=== PATIENT | male | born 1940 | race Caucasian/White ===

== ENCOUNTER → 2017-12-11 | Outpatient (CLI) | payer MEDICARE ==
[~2017-12-11] MED LIST: ANTACID EXTRA1 EACH PO; ASPI81CH PO; Antacid500 MG PO; Antihistamine25 MG PO; BAYER BACK & B1 EACH; BAYER BACK & B1 EACH PO; CHOL10002 PO; DIPH50 PO; FISH1000; Flonase 0.05% N16 GM; Fluocinolone Ac15 G1 TP; MIGRAINE RELIE1 EACH PO; MULVIT PO; Melatonin5 M1 PO; Naprosyn500 MG PO; Norco 10-325 T1 EACH PO; Norco 5-325 Ta1 EACH PO; OMEP20ER PO; RANI150; ROSU5 PO; Roxicodone5 MG PO; Viagra100 MG PO; ZESTORETIC 20-121 EA PO
== END ==
LOC: LAB SHORT 17:17 → LAB 17:17
DX: Z48.817 Encounter for surgical aftercare following surgery on the skin and subcutaneous tissue (principal)
CPT/HCPCS: 87070; 87077; 87147; 87186; 87205

== ENCOUNTER 2017-12-12 17:04 | Emergency (ER) | payer MEDICARE ==
[~2017-12-12] VITALS: Ht 167.6 cm; Wt 77.1 kg
[~2017-12-12 17:04] MED LIST changes: -Roxicodone5 MG PO
[2017-12-12] MEDS ORDERED: Roxicodone5 MG PO (18:28)
== END 2017-12-12 18:33 | disposition home or self-care (01) ==
LOC: ER 17:04
DX: L03.114 Cellulitis of left upper limb (principal); Z79.899 Other long term (current) drug therapy; Z79.82 Long term (current) use of aspirin; Z87.442 Personal history of urinary calculi
CPT/HCPCS: 29125; 99282

== ENCOUNTER 2018-07-17 06:29 | Day surgery (SDC) | payer MEDICARE ==
[~2018-07-17] VITALS: Ht 167.6 cm; Wt 81.5 kg
[~2018-07-17 06:29] MED LIST changes: +ALKA-SELTZER H1 EAC1 PO; +Crestor5 MG PO; +FINA5 PO; +FLUO.01TC TOP; +LO-DOSE ASPIRIN81 MG PO; +NAPR220 PO; +ONE DAILY COMP1 EACH PO; +Omeprazole20 M1 PO; +PROM25 PO; +Roxicodone5 MG PO; +TRAZ50 PO; +Zantac150 MG PO
[2018-07-17] MEDS ORDERED: Benadryl25 MG PO (07:09)
[2018-07-17] MEDS ORDERED: ACET500 PO (07:10)
[2018-07-17] MEDS ORDERED: ANTACID-ANTIGA1 EACH PO (07:10)
--- NOTE | 2018-07-17 07:13 | NUR ---
07/17/18 0713 Fabby Messina V PT RESTING IN BED, SIDE RAILS IN PLACE,C ALL LIGHT WITHIN REACH, VSS. PT TEACHING COMPLETED. PT DENIES PAIN, DISCOMFORT, AND QUESTIONS AT THIS TIME.
== END 2018-07-17 08:40 | disposition home or self-care (01) ==
LOC: ORSCSDS 06:29
PROVIDERS: Ophthalmology
PROC: 08RJ3JZ Replacement of Right Lens with Synthetic Substitute, Percutaneous Approach (ICD-10-PCS; principal; 2018-07-17 08:00)
DX: H25.11 Age-related nuclear cataract, right eye (principal); E11.9 Type 2 diabetes mellitus without complications; E78.5 Hyperlipidemia, unspecified; K21.9 Gastro-esophageal reflux disease without esophagitis; I10 Essential (primary) hypertension; Z79.82 Long term (current) use of aspirin; Z79.899 Other long term (current) drug therapy
CPT/HCPCS: J2250; J3010; J3301; V2632

== ENCOUNTER 2018-08-14 06:07 | Day surgery (SDC) | payer MEDICARE ==
[~2018-08-14] VITALS: Ht 167.6 cm; Wt 81.5 kg
[~2018-08-14 06:07] MED LIST changes: +ACET500 PO; +ANTACID-ANTIGA1 EACH PO; +Benadryl25 MG PO
--- NOTE | 2018-08-14 06:48 | NUR ---
08/14/18 0648 Fabby Messina V PT RESTING IN BED, SIDE RAILS IN PLACE, CALL LIGHT WITHIN REACH, VSS. PT DENIES PAIN, DISCOMFORT, AND QUESTIONS AT THIS TIME. PT TEACHING COMPLETED.
== END 2018-08-14 08:05 | disposition home or self-care (01) ==
LOC: ORSCSDS 06:07
PROVIDERS: Ophthalmology
PROC: 08RK3JZ Replacement of Left Lens with Synthetic Substitute, Percutaneous Approach (ICD-10-PCS; principal; 2018-08-14 07:30)
DX: H25.12 Age-related nuclear cataract, left eye (principal); I10 Essential (primary) hypertension; J45.909 Unspecified asthma, uncomplicated; K21.9 Gastro-esophageal reflux disease without esophagitis; Z79.899 Other long term (current) drug therapy
CPT/HCPCS: J2001; J2250; J3010; J3301; V2632

== ENCOUNTER 2021-01-29 19:17 | Emergency (ER) | payer MEDICARE ==
[~2021-01-29] VITALS: Ht 167.6 cm; Wt 84.8 kg
[~2021-01-29 19:17] MED LIST changes: +ROSU5
[2021-01-29 19:46] LABS: BASOPHILS ABSOLUTE AUTO 0.06 K/mm3 (0.00-0.23); BASOPHILS PERCENT AUTO 0 % (0-2); EOSINOPHILS ABSOLUTE AUTO 0.02 K/mm3 (0.00-0.68); EOSINOPHILS PERCENT AUTO 0 % (0-6); Hematocrit 44.1 % (37.0-53.0); Hemoglobin 14.3 g/dL (13.5-17.5); IMMATURE GRAN ABSOLUTE AUTO 0.15 K/mm3 (0.00-0.10); IMMATURE GRAN PERCENT AUTO 1 % (0-1); LYMPHOCYTES ABSOLUTE AUTO 1.45 K/mm3 (0.84-5.20); LYMPHOCYTES PERCENT AUTO 6 % (21-46); MONOCYTES ABSOLUTE AUTO 1.16 K/mm3 (0.16-1.47); MONOCYTES PERCENT AUTO 5 % (4-13); Mean Corpuscular HGB 29.2 pg (26.0-34.0); Mean Corpuscular HGB Conc 32.4 g/dL (31.5-36.5); Mean Corpuscular Volume 90 fL (80-100); Mean Platelet Volume 9.5 fL (9.1-12.4); NEUTROPHILS ABSOLUTE AUTO 22.46 K/mm3 (1.96-9.15); NEUTROPHILS PERCENT AUTO 89 % (41-73); Platelet Count 311 K/mm3 (150-400); RDW Coefficient Variation 13.1 % (11.7-14.2); RDW Standard Deviation 43.4 fL (35.1-46.3)
[2021-01-29] MEDS ORDERED: AMOCLA875 PO (19:59)
[2021-01-29] MEDS ORDERED: MOTION RELIEF25 MG PO (19:59)
[2021-01-29 20:08] LABS: Troponin I <0.015 ng/mL (0.000-0.040)
[2021-01-29 20:09] LABS: Alanine Aminotransfer (ALT/SGP 41 U/L (12-78); Albumin, Blood 3.4 g/dL (3.4-5.0); Albumin/Globulin Ratio 0.8 (0.8-1.8); Alk Phos 106 U/L (50-136); Anion Gap 9 mmol/L (6-16); Aspartate Aminotrans (AST/SGOT 24 U/L (12-37); Bilirubin, Total 0.5 mg/dL (0.1-1.0); Blood Urea Nitrogen 21 mg/dL (8-24); Bun/Creatinine Ratio 18.9 (12.0-20.0); CO2, Blood 20 mmol/L (21-32); Calcium, Blood 9.3 mg/dL (8.5-10.1); Chloride, Blood 105 mmol/L (98-108); Creatinine, Blood 1.11 mg/dL (0.60-1.20); Globulin, Blood 4.1 g/dL (2.2-4.0); Glomerular Filtration Rate >60 (60-); Glucose, Blood 113 mg/dL (70-99); Potassium, Blood 4.2 mmol/L (3.5-5.5); Sodium, Blood 134 mmol/L (136-145); Total Protein, Blood 7.5 g/dL (6.4-8.2)
== END 2021-01-29 21:15 | disposition home or self-care (01) ==
LOC: ER 19:17
PROVIDERS: Physician Assistant
DX: K21.9 Gastro-esophageal reflux disease without esophagitis (principal); D72.829 Elevated white blood cell count, unspecified; E11.9 Type 2 diabetes mellitus without complications; I10 Essential (primary) hypertension; Z88.8 Allergy status to other drugs, medicaments and biological substances; Z79.899 Other long term (current) drug therapy; Z79.82 Long term (current) use of aspirin
CPT/HCPCS: 36415; 71046; 80053; 83690; 84484; 85025; 93005; 93010; 99285-25

== ENCOUNTER 2021-12-09 04:02 | Observation (INO) | payer MEDICARE ==
[~2021-12-09] VITALS: Ht 167.6 cm; Wt 84.5 kg
[~2021-12-09 04:02] MED LIST changes: +AMOCLA875 PO; +MOTION RELIEF25 MG PO; -Omeprazole20 M1 PO
[2021-12-09 04:35] LABS: BASOPHILS ABSOLUTE AUTO 0.04 K/mm3 (0.00-0.23); BASOPHILS PERCENT AUTO 0 % (0-2); EOSINOPHILS ABSOLUTE AUTO 0.04 K/mm3 (0.00-0.68); EOSINOPHILS PERCENT AUTO 0 % (0-6); Hematocrit 40.1 % (37.0-53.0); Hemoglobin 13.3 g/dL (13.5-17.5); IMMATURE GRAN ABSOLUTE AUTO 0.03 K/mm3 (0.00-0.10); IMMATURE GRAN PERCENT AUTO 0 % (0-1); LYMPHOCYTES ABSOLUTE AUTO 1.71 K/mm3 (0.84-5.20); LYMPHOCYTES PERCENT AUTO 17 % (21-46); MONOCYTES PERCENT AUTO 4 % (4-13); Mean Corpuscular HGB 28.8 pg (26.0-34.0); Mean Corpuscular HGB Conc 33.2 g/dL (31.5-36.5); Mean Corpuscular Volume 87 fL (80-100); Mean Platelet Volume 9.6 fL (9.1-12.4); NEUTROPHILS ABSOLUTE AUTO 7.85 K/mm3 (1.96-9.15); NEUTROPHILS PERCENT AUTO 78 % (41-73); Platelet Count 346 K/mm3 (150-400); RDW Standard Deviation 41.5 fL (35.1-46.3); Red Blood Cell Count 4.62 M/mm3 (4.30-5.90); White Blood Cell Count 10.07 K/mm3 (4.00-11.30)
[2021-12-09 04:56] LABS: Albumin/Globulin Ratio 1.2 (0.8-1.8); Bilirubin, Total 0.4 mg/dL (0.1-1.0); Bun/Creatinine Ratio 10.1 (12.0-20.0); Calcium, Blood 9.1 mg/dL (8.5-10.1); Creatinine, Blood 1.19 mg/dL (0.60-1.20); Globulin, Blood 3.4 g/dL (2.2-4.0); Potassium, Blood 3.9 mmol/L (3.5-5.5); Total Protein, Blood 7.4 g/dL (6.4-8.2)
[2021-12-09 09:27] LABS: Source, Urine Clean Catch
[2021-12-09 09:48] LABS: Appearance, Urine Clear (Clear); Bilirubin, Urine Neg (Neg); Blood, Urine Neg (Neg); Color, Urine Yellow (P-Yellow); Glucose Qualitative, Urine Neg (Neg); Ketones, Urine Neg (Neg); Leukocyte Esterase, Urine Neg (Neg); Nitrite, Urine Neg (Neg); Protein, Urine Neg (Neg); Urobilinogen, Urine NORM (Normal)
[2021-12-09 12:17] LABS: Albumin, Blood 3.5 g/dL (3.4-5.0); Albumin/Globulin Ratio 1.1 (0.8-1.8); Bilirubin, Total 0.3 mg/dL (0.1-1.0); Bun/Creatinine Ratio 11.1 (12.0-20.0); Calcium, Blood 8.5 mg/dL (8.5-10.1); Creatinine, Blood 0.99 mg/dL (0.60-1.20); Globulin, Blood 3.2 g/dL (2.2-4.0); Potassium, Blood 4.1 mmol/L (3.5-5.5); Total Protein, Blood 6.7 g/dL (6.4-8.2)
[2021-12-10 05:42] LABS: Hematocrit 39.3 % (37.0-53.0); Hemoglobin 12.6 g/dL (13.5-17.5); Mean Corpuscular HGB 28.7 pg (26.0-34.0); Mean Corpuscular HGB Conc 32.1 g/dL (31.5-36.5); Mean Corpuscular Volume 90 fL (80-100); Mean Platelet Volume 9.9 fL (9.1-12.4); Platelet Count 320 K/mm3 (150-400); RDW Standard Deviation 43.1 fL (35.1-46.3); Red Blood Cell Count 4.39 M/mm3 (4.30-5.90); White Blood Cell Count 13.57 K/mm3 (4.00-11.30)
[2021-12-10 06:12] LABS: Albumin, Blood 3.5 g/dL (3.4-5.0); Albumin/Globulin Ratio 1.2 (0.8-1.8); Bilirubin, Total 0.3 mg/dL (0.1-1.0); Bun/Creatinine Ratio 11.6 (12.0-20.0); Calcium, Blood 8.6 mg/dL (8.5-10.1); Creatinine, Blood 0.95 mg/dL (0.60-1.20); Globulin, Blood 2.9 g/dL (2.2-4.0); Potassium, Blood 4.4 mmol/L (3.5-5.5); Total Protein, Blood 6.4 g/dL (6.4-8.2)
[2021-12-10 06:53] LABS: BAND PERCENT MAN 1 % (0-8); BASOPHILS PERCENT MAN 0 % (0-2); EOSINOPHILS PERCENT MAN 0 % (0-6); LYMPHOCYTES ABSOLUTE MAN 1.89 K/mm3 (0.84-5.20); LYMPHOCYTES PERCENT MAN 14 % (21-46); MONOCYTES ABSOLUTE MAN 0.54 K/mm3 (0.16-1.47); MONOCYTES PERCENT MAN 4 % (4-13); NEUTROPHILS ABSOLUTE MAN 11.12 K/mm3 (1.96-9.15); SEG NEUTROPHILS PERCENT MAN 81 % (41-73); TOTAL CELLS COUNTED 100
== END 2021-12-10 19:20 | disposition home or self-care (01) ==
LOC: ER 04:02 → MEDS 08:27
PROVIDERS: Emergency Medicine; ADMIT Internal Medicine Endocrinology, Diabetes & Metabolism
DX: R10.84 Generalized abdominal pain (principal); C85.93 Non-Hodgkin lymphoma, unspecified, intra-abdominal lymph nodes; R11.10 Vomiting, unspecified; K21.9 Gastro-esophageal reflux disease without esophagitis; R74.02 Elevation of levels of lactic acid dehydrogenase [LDH]; E11.9 Type 2 diabetes mellitus without complications; I10 Essential (primary) hypertension; R11.2 Nausea with vomiting, unspecified; Z88.8 Allergy status to other drugs, medicaments and biological substances; Z79.82 Long term (current) use of aspirin; Z79.899 Other long term (current) drug therapy
CPT/HCPCS: 36415; 74177; 80053; 81003; 83605; 83615; 83690; 84484; 84550; 85007; 85025; 85027; 86850; 86900; 86901; 93005; 93010; A9270; J1170; J1650; J2270; J2405; J2550; J2765; J3480; J7030; Q9967

== ENCOUNTER 2022-08-04 16:07 | Emergency (ER) | payer MEDICARE ==
[~2022-08-04] VITALS: Ht 167.6 cm; Wt 81.7 kg
[2022-08-04 17:03] LABS: Hematocrit 36.3 % (37.0-53.0); Hemoglobin 12.1 g/dL (13.5-17.5); Mean Corpuscular HGB 28.7 pg (26.0-34.0); Mean Corpuscular HGB Conc 33.3 g/dL (31.5-36.5); Mean Corpuscular Volume 86 fL (80-100); Mean Platelet Volume 9.7 fL (9.1-12.4); Platelet Count 261 K/mm3 (150-400); RDW Coefficient Variation 14.1 % (11.7-14.2); RDW Standard Deviation 43.6 fL (35.1-46.3); Red Blood Cell Count 4.22 M/mm3 (4.30-5.90); White Blood Cell Count 19.13 K/mm3 (4.00-11.30)
[2022-08-04 17:23] LABS: Albumin, Blood 3.5 g/dL (3.4-5.0); Albumin/Globulin Ratio 1.1 (0.8-1.8); Bilirubin, Total 0.3 mg/dL (0.1-1.0); Bun/Creatinine Ratio 10.8 (12.0-20.0); Calcium, Blood 8.7 mg/dL (8.5-10.1); Creatinine, Blood 1.11 mg/dL (0.60-1.20); Globulin, Blood 3.3 g/dL (2.2-4.0); Potassium, Blood 2.9 mmol/L (3.5-5.5); Total Protein, Blood 6.8 g/dL (6.4-8.2)
[2022-08-04 17:24] LABS: BAND PERCENT MAN 4 % (0-8); BASOPHILS PERCENT MAN 0 % (0-2); EOSINOPHILS ABSOLUTE MAN 0.38 K/mm3 (0.00-0.68); EOSINOPHILS PERCENT MAN 2 % (0-6); LYMPHOCYTES ABSOLUTE MAN 0.57 K/mm3 (0.84-5.20); LYMPHOCYTES PERCENT MAN 3 % (21-46); METAMYELOCYTE ABSOLUTE MAN 0.19 K/mm3 (0.00-0.00); METAMYELOCYTE PERCENT MAN 1 % (0-0); MONOCYTES ABSOLUTE MAN 1.53 K/mm3 (0.16-1.47); MONOCYTES PERCENT MAN 8 % (4-13); MYELOCYTE ABSOLUTE MAN 0.38 K/mm3 (0.00-0.00); MYELOCYTE PERCENT MAN 2 % (0-0); NEUTROPHILS ABSOLUTE MAN 16.06 K/mm3 (1.96-9.15); SEG NEUTROPHILS PERCENT MAN 80 % (41-73); TOTAL CELLS COUNTED 100
[2022-08-04] MEDS ORDERED: LISI20 PO (21:31)
[2022-08-04 21:40] LABS: Source, Urine Clean Catch
[2022-08-04 21:45] LABS: Appearance, Urine Clear (Clear); Bilirubin, Urine Neg (Neg); Blood, Urine Neg (Neg); Color, Urine Yellow (P-Yellow); Glucose Qualitative, Urine Neg (Neg); Ketones, Urine Neg (Neg); Leukocyte Esterase, Urine Neg (Neg); Nitrite, Urine Neg (Neg); Protein, Urine Neg (Neg); Specific Gravity, Urine 1.005 (1.003-1.022); Urobilinogen, Urine NORM (Normal)
[2022-08-04 23:00] VITALS: BP 148/71
[2022-08-04] MEDS ORDERED: OXAYDO5 M1 PO (23:06)
== END 2022-08-04 23:18 | disposition home or self-care (01) ==
LOC: ER 16:07
PROVIDERS: Physician Assistant; Student in an Organized Health Care Education/Training Program
DX: M51.36 Other intervertebral disc degeneration, lumbar region (principal); Z88.8 Allergy status to other drugs, medicaments and biological substances; Z79.899 Other long term (current) drug therapy; E11.9 Type 2 diabetes mellitus without complications; I10 Essential (primary) hypertension; E78.00 Pure hypercholesterolemia, unspecified; K21.9 Gastro-esophageal reflux disease without esophagitis
CPT/HCPCS: 36415; 72100; 74177; 80053; 81003; 85025; 85651; 86140; 96361; 96374-59; 96375; 99284-25; A9270; J1885; J2270; J7030; Q9967

== ENCOUNTER 2023-03-07 14:29 | Inpatient (IN) | payer MEDICARE ==
[~2023-03-07] VITALS: Ht 167.6 cm; Wt 79.2 kg
[~2023-03-07 14:29] MED LIST changes: +LISI20 PO; +OXAYDO5 M1 PO
[2023-03-07 14:58] LABS: BASOPHILS ABSOLUTE AUTO 0.04 K/mm3 (0.00-0.23); BASOPHILS PERCENT AUTO 0 % (0-2); EOSINOPHILS ABSOLUTE AUTO 0.05 K/mm3 (0.00-0.68); EOSINOPHILS PERCENT AUTO 0 % (0-6); Hematocrit 44.9 % (37.0-53.0); Hemoglobin 14.7 g/dL (13.5-17.5); IMMATURE GRAN ABSOLUTE AUTO 0.13 K/mm3 (0.00-0.10); IMMATURE GRAN PERCENT AUTO 1 % (0-1); LYMPHOCYTES PERCENT AUTO 10 % (21-46); MONOCYTES ABSOLUTE AUTO 0.63 K/mm3 (0.16-1.47); MONOCYTES PERCENT AUTO 5 % (4-13); Mean Corpuscular HGB Conc 32.7 g/dL (31.5-36.5); Mean Corpuscular Volume 89 fL (80-100); Mean Platelet Volume 9.1 fL (9.1-12.4); NEUTROPHILS ABSOLUTE AUTO 10.22 K/mm3 (1.96-9.15); NEUTROPHILS PERCENT AUTO 83 % (41-73); Platelet Count 394 K/mm3 (150-400); RDW Coefficient Variation 13.5 % (11.7-14.2); RDW Standard Deviation 43.9 fL (35.1-46.3); Red Blood Cell Count 5.07 M/mm3 (4.30-5.90); White Blood Cell Count 12.27 K/mm3 (4.00-11.30)
[2023-03-07 15:17] LABS: Albumin, Blood 3.7 g/dL (3.4-5.0); Bilirubin, Total 0.3 mg/dL (0.1-1.0); Bun/Creatinine Ratio 14.5 (12.0-20.0); Calcium, Blood 9.2 mg/dL (8.5-10.1); Creatinine, Blood 1.17 mg/dL (0.60-1.20); Globulin, Blood 3.7 g/dL (2.2-4.0); Potassium, Blood 3.4 mmol/L (3.5-5.5); Total Protein, Blood 7.4 g/dL (6.4-8.2)
--- NOTE | 2023-03-07 18:57 | NUR ---
ARRIVAL NOTE PT ARRIVAL TO UNIT FROM ED. PT HAS CLOTHING ONLY IN HIS POSESSIONS. ALL OTHER ITEMS SENT HOME WITH . AMBULATED INDEPENDENTLY FROM GOURNEY TO BED. A&Ox4, [place]. NPO. NG TUBE IN PLACE, CONNECTED TO INTERMITTENT SUCTION. ORIENTED TO ROOM, PT STATES NO NEEDS AT THIS TIME, CALL LIGHT WITHIN REACH.
[2023-03-07 19:00] VITALS: BP 159/95
[2023-03-08 00:44] VITALS: BP 138/72
--- NOTE | 2023-03-08 04:25 | NUR ---
SHIFT SUMMARY S/P SBO. NO ACUTE CHNAGES OVERNIGHT. A&O x4. NPO. NG TUBE CONNECTED TO INTERMITTERNT SUCTION, BILOUS FLUID. DENIES N/V. PT ON BEDREST, USES URINAL TO VOID. PT REPORTS NO PAIN OVERNIGHT. PT STATES HE FEELS HE IS UNABLE TO SLEEP, HAS SPENT MOST OF THE NIGHT WATCHING TV. CALL LIGHT WITHIN REACH, BED IN LOWEST POSITION, WILL REPORT TO DAY RN.
[2023-03-08 05:33] VITALS: BP 145/72
[2023-03-08 05:40] LABS: Bun/Creatinine Ratio 15.5 (12.0-20.0); Calcium, Blood 8.6 mg/dL (8.5-10.1); Creatinine, Blood 1.03 mg/dL (0.60-1.20); Potassium, Blood 3.5 mmol/L (3.5-5.5)
[2023-03-08 07:13] VITALS: BP 153/81
[2023-03-08] MEDS ORDERED: BENADRYL25 MG PO (07:53)
[2023-03-08] MEDS ORDERED: Aspir 8181 MG PO (07:54)
[2023-03-08] MEDS ORDERED: CENTRUM SILVER1 EAC2 PO (07:57)
[2023-03-08] MEDS ORDERED: ZANTAC PO (07:57)
[2023-03-08] MEDS ORDERED: VITAMIN D31000 UNI1 PO (07:59)
[2023-03-08] MEDS ORDERED: NAPR220 PO (08:00)
[2023-03-08 14:31] VITALS: BP 149/79
--- NOTE | 2023-03-08 14:31 | NUR ---
PASSED FLATUS AND LATER HAD SMALL-MEDIUM BM.
--- NOTE | 2023-03-08 15:32 | NUR ---
Pt. is awake in bed and welcomes my visit. Pt. is unsettled by the wait for his diagnosis and treatment plan. Listen with empathy and a calming presence while I seek to normalize the Pt. experience. Pt. displayed evidence of awareness and engagement. Prayed with Pt. Pt. verbalized gratitude for the spiritual care visit.
--- NOTE | 2023-03-08 15:55 | NUR ---
SUMMARY PT WAITING TO SEE SURGEON. NG HAS HAD SMALL AMOUNT OF OUTPUT FROM LIS. DENIES PAIN OR N/V. PASSED FLATUS AND HAD SM-MED BM AT MIDDAY. CALL LIGHT IN REACH.
--- NOTE | 2023-03-08 16:19 | NUR ---
report given and care turned over to argelia taveras rn
[2023-03-08 23:52] VITALS: BP 149/67
[2023-03-09 04:52] VITALS: BP 138/75
--- NOTE | 2023-03-09 07:17 | NUR ---
SUMMARY PT SLEEPING SINCE OBTAINING POWER GLIDE.NG OUT AT BEGINNING OF SHIFT. NO NAUSEA, NO C/O PAIN.
[2023-03-09 08:33] VITALS: BP 143/80
[2023-03-09 15:33] VITALS: BP 143/64
--- NOTE | 2023-03-09 16:04 | NUR ---
SUMMARY: NO CHANGE THIS SHIFT. PT A/O, VSS. TOOK SEVERAL WALKS IN THE HALLS TODAY. PT DENIES PAIN, N/V. REPORTS PASSING FLATUS, DIET ADVANCED TO CLEAR LIQ AND PT IS TOLERATING. IV ANTIBIOTICS INFUSED AND IV STEROIDS GIVEN. PLAN IS FOR REPEAT CT ON SUNDAY.
[2023-03-09 19:30] VITALS: BP 135/67
[2023-03-10 03:30] VITALS: BP 118/61
--- NOTE | 2023-03-10 06:45 | NUR ---
SHIFT SUMMARY NO ACUTE CHANGES NOTED, VSS, SLIGHT NAUSEA THIS AM, ON ROOM AIR, VOIDING WNL, BM REPORTED THIS AM, PAIN WNL, REPORT GIVEN TO SELENE ALANIS, CALL LIGHT IN REACH
[2023-03-10 07:21] LABS: Hematocrit 32.8 % (37.0-53.0); Hemoglobin 10.8 g/dL (13.5-17.5); Mean Corpuscular HGB 28.9 pg (26.0-34.0); Mean Corpuscular HGB Conc 32.9 g/dL (31.5-36.5); Mean Corpuscular Volume 88 fL (80-100); Mean Platelet Volume 9.5 fL (9.1-12.4); Platelet Count 367 K/mm3 (150-400); RDW Coefficient Variation 13.6 % (11.7-14.2); RDW Standard Deviation 43.7 fL (35.1-46.3); Red Blood Cell Count 3.74 M/mm3 (4.30-5.90); White Blood Cell Count 17.19 K/mm3 (4.00-11.30)
[2023-03-10 07:31] LABS: Albumin, Blood 3.1 g/dL (3.4-5.0); Albumin/Globulin Ratio 1.1 (0.8-1.8); Bilirubin, Total 0.2 mg/dL (0.1-1.0); Bun/Creatinine Ratio 23.1 (12.0-20.0); Calcium, Blood 8.4 mg/dL (8.5-10.1); Creatinine, Blood 1.04 mg/dL (0.60-1.20); Globulin, Blood 2.7 g/dL (2.2-4.0); Total Protein, Blood 5.8 g/dL (6.4-8.2)
[2023-03-10 07:33] VITALS: BP 124/65
[2023-03-10 08:24] LABS: BAND PERCENT MAN 19 % (0-8); BASOPHILS PERCENT MAN 0 % (0-2); EOSINOPHILS PERCENT MAN 0 % (0-6); LYMPHOCYTES % ATYPICAL MANUAL 1 % (0-0); LYMPHOCYTES ABSOLUTE MAN 0.51 K/mm3 (0.84-5.20); LYMPHOCYTES PERCENT MAN 2 % (21-46); METAMYELOCYTE ABSOLUTE MAN 0.17 K/mm3 (0.00-0.00); METAMYELOCYTE PERCENT MAN 1 % (0-0); MONOCYTES ABSOLUTE MAN 0.17 K/mm3 (0.16-1.47); MONOCYTES PERCENT MAN 1 % (4-13); NEUTROPHILS ABSOLUTE MAN 16.33 K/mm3 (1.96-9.15); SEG NEUTROPHILS PERCENT MAN 76 % (41-73); TOTAL CELLS COUNTED 100
[2023-03-10 14:35] VITALS: BP 125/72
--- NOTE | 2023-03-10 18:37 | NUR ---
SHIFT SUMMARY PT HAVING MULTIPLE BM THIS SHIFT, NAUSEA RESOLVED. TOLERATING FULL LIQUID DIET. PT CONTINUING IV ABX AT THIS TIME. PLAN FOR REPEAT CT SCAN SUNDAY.
[2023-03-10 21:19] VITALS: BP 136/70
[2023-03-11 04:54] VITALS: BP 142/73
[2023-03-11 05:20] LABS: Hematocrit 31.3 % (37.0-53.0); Hemoglobin 10.3 g/dL (13.5-17.5); Mean Corpuscular HGB 29.1 pg (26.0-34.0); Mean Corpuscular HGB Conc 32.9 g/dL (31.5-36.5); Mean Corpuscular Volume 88 fL (80-100); Mean Platelet Volume 9.5 fL (9.1-12.4); Platelet Count 314 K/mm3 (150-400); RDW Coefficient Variation 13.9 % (11.7-14.2); RDW Standard Deviation 44.8 fL (35.1-46.3); Red Blood Cell Count 3.54 M/mm3 (4.30-5.90); White Blood Cell Count 15.26 K/mm3 (4.00-11.30)
[2023-03-11 05:54] LABS: Albumin, Blood 2.9 g/dL (3.4-5.0); Albumin/Globulin Ratio 1.2 (0.8-1.8); BAND PERCENT MAN 10 % (0-8); BASOPHILS PERCENT MAN 0 % (0-2); Bilirubin, Total 0.2 mg/dL (0.1-1.0); Bun/Creatinine Ratio 21.8 (12.0-20.0); Calcium, Blood 8.5 mg/dL (8.5-10.1); Creatinine, Blood 1.01 mg/dL (0.60-1.20); EOSINOPHILS PERCENT MAN 0 % (0-6); Globulin, Blood 2.4 g/dL (2.2-4.0); LYMPHOCYTES ABSOLUTE MAN 0.15 K/mm3 (0.84-5.20); LYMPHOCYTES PERCENT MAN 1 % (21-46); METAMYELOCYTE ABSOLUTE MAN 0.61 K/mm3 (0.00-0.00); METAMYELOCYTE PERCENT MAN 4 % (0-0); MONOCYTES PERCENT MAN 2 % (4-13); MYELOCYTE PERCENT MAN 2 % (0-0); NEUTROPHILS ABSOLUTE MAN 13.88 K/mm3 (1.96-9.15); Potassium, Blood 3.7 mmol/L (3.5-5.5); SEG NEUTROPHILS PERCENT MAN 81 % (41-73); TOTAL CELLS COUNTED 100; Total Protein, Blood 5.3 g/dL (6.4-8.2)
--- NOTE | 2023-03-11 07:31 | NUR ---
SHIFT SUMMARY NO ACUTE CHANGES NOTED THROUGH THE NIGHT, PT IS A&O X4, ON RA, VSS, INDEPENDEDNT IN ROOM, VOIDING WNL, LIQUID GREEN STOOL REPORTED BY PT, PT DENIES PAIN, OCCASIONAL NAUSEA, CLEAR LIQUID DIET, REPORT GIVEN TO YASMENE ALANIS, PT RESTING IN BED, RESP UNLABORED, CALL LIGHT IN REACH
[2023-03-11 07:34] VITALS: BP 140/67
[2023-03-11 14:40] VITALS: BP 134/70
--- NOTE | 2023-03-11 17:29 | NUR ---
shift summary pt continues to have loose stools but reports improvement as the day progressed. reports slight nausea in the morning but denies otherwise. no pain during shift, ambulating in room well. plan is for repeat ct in the morning.
[2023-03-11 20:30] VITALS: BP 147/78
[2023-03-12 05:37] VITALS: BP 165/79
--- NOTE | 2023-03-12 06:49 | NUR ---
SHIFT SUMMARY PT IS HERE FOR AN SBO WHICH APPEARS TO BE RESOLVING. CT PERFORMED THIS AM TO SEE IF PT IS CLEARED TO GO HOME. PT'S VITAL SIGNS HAVE BEEN STABLE, THOUGH HIS SYSTOLIC BP WAS ELEVATED AT AM VS. PT HAS RESTED COMFORTABLY THROUGHOUT THE SHIFT W/NO ACUTE EVENTS OCCURRING. BED IS IN LOWEST POSITION, CALL LIGHT IS WITHIN REACH.
[2023-03-12 07:08] VITALS: BP 152/89
--- NOTE | 2023-03-12 13:13 | NUR ---
DR ELDRIDGE SIGNED OFF YESTERDAY, DR TAPIA PLACED ORDERS TO DC PATIENT. LABS DRAWN PER ORDERS PRIOR TO DC.
[2023-03-12 13:33] VITALS: BP 173/82
--- NOTE | 2023-03-12 13:34 | NUR ---
DISCHARGE DC'D IV, CATHETER INTACT. REVIEWED DC INSTRUCTIONS WITH PT. PT ANXIOUS TO BE DISCHARGED. VERBALIZED UNDERSTANDING OF DC INSTRUCTIONS. PT LEAVING UNIT IN WC, ACCMPANIED BY SPOUSE TO RIDE OUTSIDE.
[2023-03-12 13:52] LABS: Hematocrit 35.6 % (37.0-53.0); Hemoglobin 11.4 g/dL (13.5-17.5); Mean Corpuscular HGB 28.6 pg (26.0-34.0); Mean Corpuscular Volume 89 fL (80-100); Platelet Count 354 K/mm3 (150-400); RDW Standard Deviation 45.6 fL (35.1-46.3); Red Blood Cell Count 3.98 M/mm3 (4.30-5.90); White Blood Cell Count 14.49 K/mm3 (4.00-11.30)
[2023-03-12 14:05] LABS: Albumin, Blood 3.1 g/dL (3.4-5.0); Albumin/Globulin Ratio 1.1 (0.8-1.8); Bilirubin, Total 0.2 mg/dL (0.1-1.0); Bun/Creatinine Ratio 17.2 (12.0-20.0); Calcium, Blood 8.8 mg/dL (8.5-10.1); Creatinine, Blood 0.99 mg/dL (0.60-1.20); Globulin, Blood 2.7 g/dL (2.2-4.0); Potassium, Blood 3.5 mmol/L (3.5-5.5); Total Protein, Blood 5.8 g/dL (6.4-8.2); Uric Acid, Blood 5.4 mg/dL (3.5-7.2)
[2023-03-12 15:27] LABS: BAND PERCENT MAN 11 % (0-8); BASOPHILS PERCENT MAN 0 % (0-2); EOSINOPHILS PERCENT MAN 0 % (0-6); LYMPHOCYTES ABSOLUTE MAN 0.43 K/mm3 (0.84-5.20); LYMPHOCYTES PERCENT MAN 3 % (21-46); METAMYELOCYTE ABSOLUTE MAN 0.28 K/mm3 (0.00-0.00); METAMYELOCYTE PERCENT MAN 2 % (0-0); MONOCYTES ABSOLUTE MAN 0.72 K/mm3 (0.16-1.47); MONOCYTES PERCENT MAN 5 % (4-13); MYELOCYTE ABSOLUTE MAN 0.14 K/mm3 (0.00-0.00); MYELOCYTE PERCENT MAN 1 % (0-0); NEUTROPHILS ABSOLUTE MAN 12.89 K/mm3 (1.96-9.15); SEG NEUTROPHILS PERCENT MAN 78 % (41-73); TOTAL CELLS COUNTED 100
== END 2023-03-12 13:40 | disposition home or self-care (01) | DRG 389 ==
LOC: ER 14:29 → SURS 17:22
PROVIDERS: Internal Medicine; Physician Assistant; Surgery; ADMIT Internal Medicine
DX: K56.609 Unspecified intestinal obstruction, unspecified as to partial versus complete obstruction (principal); C85.93 Non-Hodgkin lymphoma, unspecified, intra-abdominal lymph nodes; E11.9 Type 2 diabetes mellitus without complications; I10 Essential (primary) hypertension; E78.00 Pure hypercholesterolemia, unspecified; K21.9 Gastro-esophageal reflux disease without esophagitis; H54.7 Unspecified visual loss; H91.90 Unspecified hearing loss, unspecified ear; E87.6 Hypokalemia; K57.30 Diverticulosis of large intestine without perforation or abscess without bleeding; D72.829 Elevated white blood cell count, unspecified; Z88.8 Allergy status to other drugs, medicaments and biological substances; Z79.51 Long term (current) use of inhaled steroids; Z86.010 Personal history of colon polyps; Z90.49 Acquired absence of other specified parts of digestive tract; Z79.82 Long term (current) use of aspirin
CPT/HCPCS: 36415; 43761; 71045; 74019; 74177; 80048; 80053; 83615; 83690; 83735; 84550; 85025; 99285-25; A9270; C1751; C9113; J0696; J1100; J1644; J2405; J3480; J7050; J7120; Q9967

== ENCOUNTER 2023-03-23 09:00 | Day surgery (SDC) | payer MEDICARE ==
[~2023-03-23] VITALS: Ht 167.6 cm; Wt 77.9 kg
[2023-03-23] VITALS (8 sets, daily range): BP systolic 112–178; BP diastolic 70–77
[~2023-03-23 09:00] MED LIST changes: +Aspir 8181 MG PO; +BENADRYL25 MG PO; +CENTRUM SILVER1 EAC2 PO; +VITAMIN D31000 UNI1 PO; +ZANTAC PO
[2023-03-23] MEDS ORDERED: PRED5 PO (09:16)
--- NOTE | 2023-03-23 10:13 | NUR ---
PRE-OP NOTE PT A&OX4, BREATHING RA, NO COMPLAINTS. Ambulatory in Day Surgery Patient confirms NPO status and agrees with scheduled surgery. Pre-Op teaching done. Pt verbalizes understanding. Patient States Post-Procedure ride home has been arranged.
--- NOTE | 2023-03-23 11:30 | NUR ---
PT AMBULATED TO RESTROOM TO VOID. TOLERATED APPLE JUICE, DENIES NEED FOR PAIN MEDICATION RIGHT NOW, READY FOR DC HOME.
--- NOTE | 2023-03-23 11:32 | NUR ---
Discharge instructions reviewed with patient. Patient verbalizes understanding. Copy given to patient to take home. ICE PACK GIVEN TO PT.
--- NOTE | 2023-03-26 08:56 | NUR ---
03/26/23 0856 Sandy Vega VERIFICATIONS: EDIT CHART.
== END 2023-03-23 11:41 | disposition home or self-care (01) ==
LOC: ORSCMMR 09:00 → ORD 10:30 → ORSCMMR 10:30
PROVIDERS: Surgery
PROC: 0JH63WZ Insertion of Totally Implantable Vascular Access Device into Chest Subcutaneous Tissue and Fascia, Percutaneous Approach (ICD-10-PCS; principal; 2023-03-23 10:00)
PROC: B543ZZA Ultrasonography of Right Jugular Veins, Guidance (ICD-10-PCS; principal; 2023-03-23 10:00)
PROC: 05HM33Z Insertion of Infusion Device into Right Internal Jugular Vein, Percutaneous Approach (ICD-10-PCS; principal; 2023-03-23 10:00)
DX: C82.00 Follicular lymphoma grade I, unspecified site (principal); I10 Essential (primary) hypertension; K21.9 Gastro-esophageal reflux disease without esophagitis; E11.9 Type 2 diabetes mellitus without complications; E78.00 Pure hypercholesterolemia, unspecified; E78.5 Hyperlipidemia, unspecified; Z79.899 Other long term (current) drug therapy; Z79.82 Long term (current) use of aspirin
CPT/HCPCS: 77001; 82947; 93005; 93010; C1788; J0690; J1642; J2250; J2704; J3010; J7120

== ENCOUNTER 2023-03-27 03:13 | Emergency (ER) | payer MEDICARE ==
[~2023-03-27] VITALS: Ht 167.6 cm; Wt 77.1 kg
[~2023-03-27 03:13] MED LIST changes: +PRED5 PO
[2023-03-27 03:53] LABS: RDW Coefficient Variation 14.3 % (11.7-14.2)
[2023-03-27] MEDS ORDERED: [UNRECOGNIZED DRUG - OTHER] (03:54)
[2023-03-27] MEDS ORDERED: HYDROCODONE-AC1 EA19 (03:54)
[2023-03-27] MEDS ORDERED: PRED20 (03:55)
[2023-03-27 04:02] LABS: Hematocrit 39.9 % (37.0-53.0); Hemoglobin 13.1 g/dL (13.5-17.5); Mean Corpuscular HGB 28.7 pg (26.0-34.0); Mean Corpuscular HGB Conc 32.8 g/dL (31.5-36.5); Mean Corpuscular Volume 87 fL (80-100); RDW Standard Deviation 45.7 fL (35.1-46.3); Red Blood Cell Count 4.57 M/mm3 (4.30-5.90); White Blood Cell Count 1.52 K/mm3 (4.00-11.30)
[2023-03-27 04:04] LABS: Mean Platelet Volume 10.4 fL (9.1-12.4)
[2023-03-27 04:13] LABS: BAND PERCENT MAN 2 % (0-8); BASOPHILS PERCENT MAN 0 % (0-2); EOSINOPHILS ABSOLUTE MAN 0.09 K/mm3 (0.00-0.68); EOSINOPHILS PERCENT MAN 6 % (0-6); LYMPHOCYTES % ATYPICAL MANUAL 4 % (0-0); LYMPHOCYTES ABSOLUTE MAN 0.79 K/mm3 (0.84-5.20); LYMPHOCYTES PERCENT MAN 48 % (21-46); MONOCYTES ABSOLUTE MAN 0.42 K/mm3 (0.16-1.47); MONOCYTES PERCENT MAN 28 % (4-13); NEUTROPHILS ABSOLUTE MAN 0.21 K/mm3 (1.96-9.15); SEG NEUTROPHILS PERCENT MAN 12 % (41-73); TOTAL CELLS COUNTED 50
[2023-03-27 04:19] LABS: Albumin, Blood 3.6 g/dL (3.4-5.0); Albumin/Globulin Ratio 1.1 (0.8-1.8); Bilirubin, Total 0.4 mg/dL (0.1-1.0); Bun/Creatinine Ratio 13.4 (12.0-20.0); Creatinine, Blood 1.12 mg/dL (0.60-1.20); Globulin, Blood 3.2 g/dL (2.2-4.0); Potassium, Blood 4.3 mmol/L (3.5-5.5); Total Protein, Blood 6.8 g/dL (6.4-8.2)
[2023-03-27 04:23] LABS: Platelet Count 140 K/mm3 (150-400)
[2023-03-27 05:33] LABS: Source, Urine Clean Catch
[2023-03-27 05:47] LABS: Bilirubin, Urine Neg (Neg); Blood, Urine 3+ (Neg); Glucose Qualitative, Urine Neg (Neg); Ketones, Urine Neg (Neg); Leukocyte Esterase, Urine Neg (Neg); Nitrite, Urine Neg (Neg); Protein, Urine Neg (Neg); Urobilinogen, Urine NORM (Normal)
[2023-03-27 06:03] LABS: Appearance, Urine Clear (Clear); Bacteria Not Seen /hpf; Color, Urine Yellow (P-Yellow); Squamous Epithelial Cells Rare /hpf (Few); White Blood Cells, Urine Not Seen /hpf (0-5)
[2023-03-27] MEDS ORDERED: LIDO700A20 TOP (06:16)
[2023-03-27] MEDS ORDERED: Ibuprofen600 MG PO (06:16)
[2023-03-27 07:35] VITALS: BP 125/63
== END 2023-03-27 08:11 | disposition home or self-care (01) ==
LOC: ER 03:13
PROVIDERS: Emergency Medicine
DX: S39.012A Strain of muscle, fascia and tendon of lower back, initial encounter (principal); G89.29 Other chronic pain; I10 Essential (primary) hypertension; E11.9 Type 2 diabetes mellitus without complications; E78.00 Pure hypercholesterolemia, unspecified; Z88.8 Allergy status to other drugs, medicaments and biological substances; Z79.51 Long term (current) use of inhaled steroids; Z79.82 Long term (current) use of aspirin; Z79.899 Other long term (current) drug therapy; X58.XXXA Exposure to other specified factors, initial encounter
CPT/HCPCS: 51798; 74177; 80053; 81001; 85025; 96361; 96374; 99284-25; J1885; J7030; Q9967

== ENCOUNTER → 2023-08-04 | Outpatient (CLI) | payer MEDICARE ==
[~2023-08-04] MED LIST changes: +DOCU100 PO; +HYDROCODONE-AC1 EA19 PO; +Ibuprofen600 MG PO; +K-Dur20 MEQ PO; +LIDO700A20 TOP; +OXYC5 PO; +Ondansetron Odt8 MG MM; +PRED20
[2023-08-04 11:36] LABS: Hematocrit 29.7 % (37.0-53.0); Hemoglobin 9.4 g/dL (13.5-17.5); Mean Corpuscular HGB Conc 31.6 g/dL (31.5-36.5); Mean Corpuscular Volume 82 fL (80-100); Mean Platelet Volume 10.1 fL (9.1-12.4); Platelet Count 365 K/mm3 (150-400); RDW Coefficient Variation 16.8 % (11.7-14.2); RDW Standard Deviation 49.7 fL (35.1-46.3); Red Blood Cell Count 3.62 M/mm3 (4.30-5.90)
[2023-08-04 11:42] LABS: Albumin, Blood 2.9 g/dL (3.4-5.0); Albumin/Globulin Ratio 0.8 (0.8-1.8); Bilirubin, Total 0.4 mg/dL (0.1-1.0); Bun/Creatinine Ratio 9.8 (12.0-20.0); Calcium, Blood 8.6 mg/dL (8.5-10.1); Creatinine, Blood 0.82 mg/dL (0.60-1.20); Globulin, Blood 3.6 g/dL (2.2-4.0); Potassium, Blood 2.8 mmol/L (3.5-5.5); Total Protein, Blood 6.5 g/dL (6.4-8.2)
[2023-08-04 12:00] LABS: BAND PERCENT MAN 8 % (0-8); BASOPHILS PERCENT MAN 0 % (0-2); EOSINOPHILS PERCENT MAN 0 % (0-6); LYMPHOCYTES ABSOLUTE MAN 0.37 K/mm3 (0.84-5.20); LYMPHOCYTES PERCENT MAN 6 % (21-46); METAMYELOCYTE ABSOLUTE MAN 0.18 K/mm3 (0.00-0.00); METAMYELOCYTE PERCENT MAN 3 % (0-0); MONOCYTES ABSOLUTE MAN 0.24 K/mm3 (0.16-1.47); MONOCYTES PERCENT MAN 4 % (4-13); MYELOCYTE ABSOLUTE MAN 0.06 K/mm3 (0.00-0.00); MYELOCYTE PERCENT MAN 1 % (0-0); NEUTROPHILS ABSOLUTE MAN 5.33 K/mm3 (1.96-9.15); SEG NEUTROPHILS PERCENT MAN 78 % (41-73); TOTAL CELLS COUNTED 100
== END ==
LOC: LAB SHORT 09:48
PROVIDERS: Physician Assistant
DX: R11.2 Nausea with vomiting, unspecified (principal)
CPT/HCPCS: 80053; 85025

== ENCOUNTER 2023-08-10 07:08 | Inpatient (IN) | payer MEDICARE ==
[~2023-08-10] VITALS: Ht 167.6 cm; Wt 73.7 kg
[~2023-08-10 07:08] MED LIST changes: -K-Dur20 MEQ PO
[2023-08-10] MEDS ORDERED: HYDROmorphone HCl/Pf 1MG SYR IV ONE ×3 (08:00→10:00)
[2023-08-10 08:07] LABS: Hematocrit 28.1 % (37.0-53.0); Hemoglobin 9.1 g/dL (13.5-17.5); Mean Corpuscular HGB 26.8 pg (26.0-34.0); Mean Corpuscular HGB Conc 32.4 g/dL (31.5-36.5); Mean Corpuscular Volume 83 fL (80-100); Mean Platelet Volume 9.1 fL (9.1-12.4); Platelet Count 272 K/mm3 (150-400); RDW Coefficient Variation 18.4 % (11.7-14.2); RDW Standard Deviation 54.6 fL (35.1-46.3); Red Blood Cell Count 3.39 M/mm3 (4.30-5.90); White Blood Cell Count 5.25 K/mm3 (4.00-11.30)
[2023-08-10] MEDS ORDERED: Prochlorperazine Edisylate 10 mg Vial IV ONE (08:10)
[2023-08-10 08:26] LABS: Albumin, Blood 2.5 g/dL (3.4-5.0); Albumin/Globulin Ratio 0.8 (0.8-1.8); Bilirubin, Total 0.3 mg/dL (0.1-1.0); Bun/Creatinine Ratio 11.2 (12.0-20.0); Calcium, Blood 8.1 mg/dL (8.5-10.1); Creatinine, Blood 0.81 mg/dL (0.60-1.20); Globulin, Blood 3.1 g/dL (2.2-4.0); Potassium, Blood 2.9 mmol/L (3.5-5.5); Total Protein, Blood 5.6 g/dL (6.4-8.2)
[2023-08-10 08:28] LABS: BAND PERCENT MAN 11 % (0-8); BASOPHILS PERCENT MAN 0 % (0-2); EOSINOPHILS PERCENT MAN 0 % (0-6); LYMPHOCYTES ABSOLUTE MAN 0.31 K/mm3 (0.84-5.20); LYMPHOCYTES PERCENT MAN 6 % (21-46); METAMYELOCYTE ABSOLUTE MAN 0.15 K/mm3 (0.00-0.00); METAMYELOCYTE PERCENT MAN 3 % (0-0); MONOCYTES ABSOLUTE MAN 1.05 K/mm3 (0.16-1.47); MONOCYTES PERCENT MAN 20 % (4-13); MYELOCYTE PERCENT MAN 2 % (0-0); NEUTROPHILS ABSOLUTE MAN 3.62 K/mm3 (1.96-9.15); SEG NEUTROPHILS PERCENT MAN 58 % (41-73); TOTAL CELLS COUNTED 100
[2023-08-10 09:52] LABS: Source, Urine Clean Catch
[2023-08-10 09:55] LABS: Appearance, Urine Clear (Clear); Bilirubin, Urine Neg (Neg); Blood, Urine Neg (Neg); Color, Urine Yellow (P-Yellow); Glucose Qualitative, Urine Neg (Neg); Ketones, Urine Neg (Neg); Leukocyte Esterase, Urine Neg (Neg); Nitrite, Urine Neg (Neg); Protein, Urine 1+ (Neg); Specific Gravity, Urine 1.005 (1.003-1.022); Urobilinogen, Urine NORM (Normal)
[2023-08-10] MEDS ORDERED: FentaNYL Citrate 50 MCG/ML 2 ML Injection IV ONE (11:55)
[2023-08-10] MEDS ORDERED: NS 1,000 ML IV SCH (12:25)
[2023-08-10] MEDS ORDERED: Metoclopramide HCl 5MG / ML 2ML Vial IV PRN (12:25)
[2023-08-10] MEDS ORDERED: Naloxone HCl 0.4MG / ML 1ML Vial IV PRN (12:25)
[2023-08-10] MEDS ORDERED: Ketorolac Tromethamine 30mg Vial IV PRN (14:15)
[2023-08-10] MEDS ORDERED: HYDROmorphone HCl/Pf 1MG SYR IV PRN (14:35)
[2023-08-10] MEDS ORDERED: FentaNYL 12 MCG/HR Patch TOP SCH (14:35)
[2023-08-10 14:38] VITALS: BP 157/84
[2023-08-10] MEDS ORDERED: NAPR220 PO (14:45)
--- NOTE | 2023-08-10 15:00 | NUR ---
PATIENT ADMITTED FROM ER. ABLE TO TRANSFER TO BED WITH SBA. ALETHA AT BEDSIDE. PATIENT VERY [place] AND ALETHA IS ABLE TO ASSIST WITH HISTORY. ASSESSMENT, HISTORY, MED REC AND ALLERGIES CHARTED BY ERIK, STUDENT NURSE WITH THIS RN'S ASSISTANCE. PATIENT ORIENTED TO ROOM AND USE OF CALL LIGHT. DR MARLEY CAME TO BEDSIDE AND DISCUSSED PAIN MANAGEMENT WITH PATIENT AND WILL PLACE ORDERS.
[2023-08-10] MEDS ORDERED: K-Dur20 MEQ PO (15:42)
[2023-08-10] MEDS ORDERED: Docusate Sodium 100 MG Cap PO PRN (17:15)
--- NOTE | 2023-08-10 17:15 | NUR ---
SHIFT REPORT PT A&O, CALL LIGHT IN REACH. IN ROOM. PT HARD OF HEARING, USES HEARING AIDS. MAIN COMPLAINT ABDOMINAL PAIN. FENTANYL PATCH RIGHT SHOULDER. TORADOL AND DILAUDID PER EMAR. BETTER RELIEF WITH TORADOL, BUT BOTH MEDS ONLY LAST ABOUT 30 MINS EFFECTIVELY. AMBULATES TO BATHROOM WITH ASSISTANCE FOR FALL RISK. ON FULL LIQUID DIET. NO SIGN OF EMESIS, REPORT MENTIONED 3 TIMES IN ED THIS MORNING, TREATING WITH JEFFERY. PT IS COOPERATIVE WITH PROCEDURES.
--- NOTE | 2023-08-10 17:29 | NUR ---
"Spiritual Care | Pt./Nurse Request Pt. is awake in bed and spouse is at bedside. Both welcome my visit. Facilited a life review. Listen with empathy and a calming presence as they share their journey. They verbalized that this is the Pts. 5th chemotherapy treatment. Pt. displayed evidence of stoicism, but when asked, verbalized that he is experiencing pain. Pt. welcomed prayer. Prayed for both the Pt. and the spouse. Both verbalized gratitude for the spiritual care visit."
[2023-08-10] MEDS ORDERED: Rosuvastatin Calcium 10 MG Tab PO SCH (18:00)
[2023-08-10 19:40] VITALS: BP 167/91
[2023-08-10] MEDS ORDERED: FentaNYL Citrate 50 MCG/ML 2 ML Injection IV PRN ×2 (20:55→23:55)
[2023-08-10] MEDS ORDERED: NS 250 ML IV PRN (21:00)
[2023-08-10] MEDS ORDERED: Potassium Chloride 40 MEQ in NS 250 ML IV ONE (21:00)
[2023-08-11 03:08] VITALS: BP 162/87
[2023-08-11] MEDS ORDERED: Ondansetron HCl 2 MG / ML 2ML Vial IV PRN (03:25)
[2023-08-11 05:45] LABS: Hematocrit 27.4 % (37.0-53.0); Hemoglobin 8.7 g/dL (13.5-17.5); Mean Corpuscular HGB 26.5 pg (26.0-34.0); Mean Corpuscular HGB Conc 31.8 g/dL (31.5-36.5); Mean Corpuscular Volume 84 fL (80-100); Mean Platelet Volume 9.2 fL (9.1-12.4); Platelet Count 248 K/mm3 (150-400); RDW Coefficient Variation 18.3 % (11.7-14.2); Red Blood Cell Count 3.28 M/mm3 (4.30-5.90); White Blood Cell Count 5.32 K/mm3 (4.00-11.30)
[2023-08-11] MEDS ORDERED: Omeprazole 20 MG CapCR PO SCH (06:00)
[2023-08-11 06:31] LABS: Bun/Creatinine Ratio 12.8 (12.0-20.0); Calcium, Blood 7.9 mg/dL (8.5-10.1); Creatinine, Blood 0.78 mg/dL (0.60-1.20); Potassium, Blood 3.5 mmol/L (3.5-5.5)
--- NOTE | 2023-08-11 06:36 | NUR ---
SHIFT SUMMARY PT HAVING INTRACTABLE ABD PAIN. DR. CARROLL NOTIFIED BEFORE MIDNIGHT WHO ADDED 25-50 MCG OF FENTANYL Q3. ALTERNATING BETWEEN THAT AND THE 1MG IV DILAUDID Q2. PT REPORTED LITTLE TO NO RELIEF. NOTIFED DR GONZALEZ OF THIS AND THAT HE HAD ALSO HAD 3 EPISODES OF EMESIS WITH NO RELIEF WITH IV REGLAN, REQUESTED HE COME SEE THE PATIENT I HAD BEEN GIVING PAIN MEDS APPROXIMATELY EVERY HOUR WITH NO RELIEF. DR GONZALEZ ADDED IV ZOFRAN AND DID COME UP TO ASSESS PT, REVIEWED CHART, ORDERED REPEAT CT, STILL PENDING THOSE RESULTS. AND HE DECREASED THE FREQUENCY OF FENTANYL FROM Q3 TO Q2. PT HAS ABD MASS THAT ORIGINAL CT ON THE 3RD SHOWED NO EVIDENCE OF OBSTRUCTION OR PERFORATION. PT HAS NONOPERABLE ABD MASS THAT HE WAS SEEING DR. RILEY ONCOLOGY AND RECEIVING CHEMO, ABD MASS APPEARS TO HAVE INCREASED IN SIZE. PALLIATIVE CARE IS CONSULTED, HAS NOT YET ASSESS PT. PATIENT REQUEST WE NOTIFY WHEN PALLIATIVE DOES ROUND SO SHE CAN BE HERE TO LISTEN AND PARTAKE IN DECISION MAKING. HAS NOT VOMITED SINCE GIVING IV ZOFRAN BUT IS STILL OCCASIONALLY DRY HEAVING. CALL LIGHT IN REACH. BED ALARM ON. CONTINUOUS PULSE OX ON, SATTING ABOVE 90% ON RA. AT ONE POINT WAS ON 1L NC WHEN SLEEPING. HAVE TAKEN OFF AND IS SATTING 94% ON RA.
[2023-08-11 07:28] VITALS: BP 182/89
[2023-08-11 07:38] LABS: BAND PERCENT MAN 20 % (0-8); BASOPHILS PERCENT MAN 0 % (0-2); EOSINOPHILS PERCENT MAN 0 % (0-6); LYMPHOCYTES % ATYPICAL MANUAL 1 % (0-0); LYMPHOCYTES ABSOLUTE MAN 0.26 K/mm3 (0.84-5.20); LYMPHOCYTES PERCENT MAN 4 % (21-46); METAMYELOCYTE ABSOLUTE MAN 0.26 K/mm3 (0.00-0.00); METAMYELOCYTE PERCENT MAN 5 % (0-0); MONOCYTES ABSOLUTE MAN 1.38 K/mm3 (0.16-1.47); MONOCYTES PERCENT MAN 26 % (4-13); MYELOCYTE ABSOLUTE MAN 0.26 K/mm3 (0.00-0.00); MYELOCYTE PERCENT MAN 5 % (0-0); NEUTROPHILS ABSOLUTE MAN 3.13 K/mm3 (1.96-9.15); SEG NEUTROPHILS PERCENT MAN 39 % (41-73); TOTAL CELLS COUNTED 100
[2023-08-11] MEDS ORDERED: Finasteride 5 MG Tab PO SCH (09:00)
[2023-08-11] MEDS ORDERED: Potassium Chloride 20 MEQ TabCR PO SCH (09:00)
[2023-08-11] MEDS ORDERED: Fluticasone 0.05% Nasal Spray SCH (09:00)
[2023-08-11] MEDS ORDERED: Aspirin 81 MG TabEC PO SCH (09:00)
[2023-08-11] MEDS ORDERED: Enoxaparin 40 MG/0.4 ML SYR SC SCH (09:00)
[2023-08-11] MEDS ORDERED: Lisinopril 20 MG Tab PO SCH (09:00)
[2023-08-11] MEDS ORDERED: Cholecalciferol 1000 Unit Tablet (=25MCG) PO SCH (09:00)
[2023-08-11] MEDS ORDERED: LORazepam 1 MG Tab PO PRN (10:00)
[2023-08-11] MEDS ORDERED: Morphine Sulfate 20 MG/1ML 1 ML Oral Syringe SL PRN (10:00)
[2023-08-11] MEDS ORDERED: Scopolamine Hydrobromide Patch TOP PRN (10:00)
[2023-08-11] MEDS ORDERED: Atropine Sulfate 1% Opth Soln 2ML BTL SL PRN (10:00)
[2023-08-11] MEDS ORDERED: FentaNYL 25 MCG Patch TOP SCH (10:00)
--- NOTE | 2023-08-11 16:19 | NUR ---
DAYSHIFT SUMMARY This AM patient had persistant severe ABD pain, alternated IV PRNs w/ no relief. MD discussed plan of care with patient & . Plan to transition to comfort care. Roxinol & Ativan given, PRN effective for pain control. Reported some nausea this afternoon, Reglan given. Advance diet as tolerated.
--- NOTE | 2023-08-12 04:11 | NUR ---
SHIFT SUMMARY JEFFRY WAS ASLEEP AT START OF SHIFT RESTING EASILY UNTIL 0100. HE WAS TOILETED AND PER PIGMENT PUSHER REPORT HAD GOOD URINE OUTPUT INTO TOILET, HOWEVER PT COMPLAINS OF NEEDING TO VOID SEVERELY, UPON BLADDER SCAN PT WAS RETAINING 200 ML. DISCUSSED CATHETERIZATION WITH CHARGE NURSE, AND WE DECIDED THAT HIS ABDOMINAL MASS WAS LIKELY CONTRIBUTING TO URGE TO URINATE, AND PT WAS MEDICATED FOR PAIN INSTEAD. WILL CONTINUE TO MONITOR FOR RETENTION VS PAIN. NO ACUTE EVENTS TONIGHT, BUT PER PIGMENT PUSHER REPORT PT WAS VERY WEAK DURING AMBULATION, REQUIRING 2P ASSIST TO RETURN TO BED.
--- NOTE | 2023-08-12 14:37 | NUR ---
ASSESSED PATIENT FOR COMFORT. HE WAS SLEEPING AND APPEARED COMFORTABLE. DISCUSSED CASE WITH FLOOR RN. SHE REPORTED THAT HIS PAIN WAS MANAGED AT THIS TIME. SHE RELAYED THAT PATIENT WAS AMBULATING TO THE RESTROOM. PC WILL CONTINUE TO BE AVALIABLE.
--- NOTE | 2023-08-12 18:07 | NUR ---
SHIFT SUMMARY: ON COMFORT CARE. AWAKE PART OF THE DAY, WHILE HIS WAS AT BEDSIDE. C/O ABD PAIN, BELCHING; MEDICATED PER EMAR WITH RELIEF. ALSO MEDICATED FOR NAUSEA AND ANXIETY. TAKING IN VERY LITTLE PO, BUT IS DRINKING WATER. GOT UP TO BR, NO BM TODAY. PLAN IS HOME WITH HOSPICE.
--- NOTE | 2023-08-13 06:18 | NUR ---
08/13/23: PATIENT ORIENTED TO SELF AND PLACE, OCCASIONALLY TIME. PATIENT PULLED IV OUT OF RIGHT AC IN LATE MORNING; REPLACED BY ANOTHER PIV 20G RAC. DILAUDID IV AND ATIVAN PO GIVEN OVERNIGHT FOR PAIN AND SHAKING.
--- NOTE | 2023-08-13 09:07 | NUR ---
Pt sitting up in bed with o2 in place, a/ox2, cooperative with care, doesn't know if wants to take po meds yet, states he's doing ok. call light in reach.
[2023-08-13 15:11] VITALS: BP 160/80
--- NOTE | 2023-08-13 18:13 | NUR ---
pt had a pretty uneventful shift, no acute changes, needed zofran once this am, gave 10mg roxinol this afternoon, otherwise slept when left undisturbed. no acute changes this shift. call light in reach, s.o. at bedside.
--- NOTE | 2023-08-14 05:31 | NUR ---
Shift Summary Pt c/o abdominal pain and nausea at the start of shift. Gave Toradol and Zofran as ordred, pt was able to sleep for a few hours. He woke again with abdominal pain, gave 15 mg Roxinol, pt stated his pain was well controlled 1 hour later. He slept a few more hours then woke up with hip pain, medicated with Toradol again. Pt is AOx2-3, wakes up confused but is easily reoriented. 1 sba to BR, calls appropriatly.
--- NOTE | 2023-08-14 06:34 | NUR ---
Toradol 30mg IV given at 0415 Pt c/o of L hip pain and I gave 30 mg IV toradol at 0415 on 08/14/23. As I was documenting in the computer the generator test shut down the commputer and has since locked me out from documenting on Toradol for this patient. Pt stated L hip pain was well controlled, 1/10 pain 1 hour later.
--- NOTE | 2023-08-14 10:44 | NUR ---
DISCHARGE PT DISCHARGED HOME WITH HOSPICE. PAPERWORK SENT WITH THE PATIENT. IV REMOVED & INTACT. MEDICATED WITH MORPHINE PRIOR TO DC. PT AMBULATED TO THE BATHROOM AND VOIDED, THEN GOT INTO WHEELCHAIR FOR [facility].
== END 2023-08-14 10:30 | disposition hospice, home (50) | DRG 841 ==
LOC: ER 07:08 → MEDS 07:09 → ENPENDDIS 08-14 10:16 → MEDS 08-14 10:30
PROVIDERS: Emergency Medicine; ADMIT Family Medicine
DX: C82.93 Follicular lymphoma, unspecified, intra-abdominal lymph nodes (principal); E87.1 Hypo-osmolality and hyponatremia; I10 Essential (primary) hypertension; E78.5 Hyperlipidemia, unspecified; K21.9 Gastro-esophageal reflux disease without esophagitis; E87.6 Hypokalemia; G89.29 Other chronic pain; N40.0 Benign prostatic hyperplasia without lower urinary tract symptoms; E78.00 Pure hypercholesterolemia, unspecified; Z51.5 Encounter for palliative care; Z87.19 Personal history of other diseases of the digestive system; Z87.442 Personal history of urinary calculi; Z98.41 Cataract extraction status, right eye; Z98.42 Cataract extraction status, left eye; Z89.432 Acquired absence of left foot; Z90.49 Acquired absence of other specified parts of digestive tract; Z98.890 Other specified postprocedural states; Z88.8 Allergy status to other drugs, medicaments and biological substances; Z79.52 Long term (current) use of systemic steroids; Z79.82 Long term (current) use of aspirin; Z79.899 Other long term (current) drug therapy
CPT/HCPCS: 36415; 74177; 80048; 80053; 85025; 96361; 96365; 96366; 96372; 96374-59; 96375; 96376; 99285-25; A9270; G0378; J0780; J1170; J1650; J1885; J2405; J2765; J3010; J3480; J7030; J7050; Q9967